=== PATIENT | female | born 1995 | race Caucasian/White ===

== ENCOUNTER 2025-02-06 15:19 | Emergency (ER) | payer BC, SELFPAY ==
[2025-02-06 15:19] VITALS: BMI 25.1
[2025-02-06 15:36] VITALS: BP 128/97
[2025-02-06 16:09] LABS: % Basophils 0.5 % (0-2); % Eosinophils 3.1 % (0-6); % Immature Granulocytes 0.2 % (0-0.5); % Lymphocytes 28.9 % (20.5-51.1); % Monocytes 7.5 % (1.7-9.3); % Neutrophils 59.8 % (42.2-75.2); Absolute Basophils 0.1 10^3/uL (0-0.2); Absolute Eosinophils 0.3 10^3/uL (0-0.7); Absolute Lymphocytes 2.9 10^3/uL (1.2-3.4); Absolute Monocytes 0.8 10^3/uL (0.1-0.6); Absolute Neutrophils 6.1 10^3/uL (1.4-6.5); Hematocrit 40.1 % (37.0-47.0); Mean Corp Hgb Conc. 34.9 g/dL (33.0-37.0); Mean Corpuscular Hgb 29.7 pg (27.0-31.0); Mean Platelet Volume 10.4 fL (7.4-10.4); Nucleated Red Blood Cells % 0 %; Platelet Count 301 10^3/uL (130-400); Red Blood Cell Count 4.72 10^6/uL (4.20-5.40); Red Cell Dist. Width 12.6 % (11.5-14.5); White Blood Cell Count 10.1 10^3/uL (4.8-10.8)
[2025-02-06 16:10] LABS: Urine Albumin Negative (Neg - Trace); Urine Bilirubin Negative (Negative); Urine Character Clear (Clear); Urine Color Yellow; Urine Glucose Negative (Negative); Urine Ketone 1+ (Negative); Urine Leukocyte 3+ (Negative); Urine Nitrite Negative (Negative); Urine Occult Blood Negative (Negative); Urine Urobilinogen Negative (Neg - 1+)
[2025-02-06 16:22] LABS: Urine Squamous Cell >30 /LPF (Few)
[2025-02-06 16:24] LABS: Urine Bacteria Moderate (Negative); Urine White Cell 16-20 /HPF (0-5)
[2025-02-06 16:43] LABS: ALT (SGPT) 14 U/L (0-35); AST (SGOT) 17 U/L (14-36); Albumin 5.1 g/dl (3.5-5.0); Alkaline Phosphatase 65 U/L (38-126); Blood Urea Nitrogen 10 mg/dl (7-17); Calcium 10.1 mg/dl (8.4-10.2); Carbon Dioxide 22 mmol/L (22-30); Chloride 109 mmol/L (98-107); Glucose 96 mg/dl (70-99); Potassium 3.7 mmol/L (3.5-5.1); Sodium 141 mmol/L (135-145); Total Bilirubin 0.7 mg/dl (0.2-1.3); Total Protein 7.9 g/dl (6.3-8.2); eGFR > 60.00
[2025-02-06 17:32] LABS: HCG, Serum Qualitative Screen Negative
--- NOTE | 2025-02-06 17:46 | ED.GENMED ---
History of Present Illness
General
Chief Complaint: Female Obgyn Hospitalist Physician/Gu symptoms
Source: patient
Exam Limitations: none
Time Seen by Provider: 02/06/25 17:12
History of Present Illness
History of Present Illness:
29yoF with no significant past medical history presenting with her mother for evaluation of pelvic pain. Symptoms began about 2.5 weeks ago while she was still on her menstrual period. She was experiencing cramping and states it felt like her
period never went away even though her bleeding stopped. She was seen at urgent care last week and was started on doxycycline because her cervix appeared abnormal. She took her last dose today. She started to have worsening pain in her left lower
pelvic region today which prompted her to come to the ED. She is urinating more frequently than normal but denies any dysuria. No vaginal discharge, odors, itching, fevers, vomiting. She has not been sexually active for about 3 years and denies
concerns for STDs.
Past History
Past History
ED Past Medical History: None
ED Past Surgical History: None
Social History
Tobacco: Non-smoker
Phy Exam
General Physical Exam
General Presentation: well appearing and no apparent distress
General Skin: warm and dry
General Habitus: normal
General Mental: alert
ENT Exam
ENT Exam: normocephalic
Pulmonary Exam
Pulmonary Exam: no respiratory distress
Gastrointestinal Exam
Gastrointestinal Exam: non tender, soft, non distended and no cva tenderness
Genitourinary Exam Female
Exam Female: other (Small amount of white discharge noted on speculum exam. Cervix otherwise appears normal. No cervical motion tenderness. )
Neurological Exam
Neurological Exam: alert
[place] Coma Scale
Eye Opening: Spontaneous
Verbal Response: Oriented
Motor Response: Obeys Commands
GCS Total Score: 15
Skin Exam
Skin Exam: normal color and warm/dry
Psychiatric Exam
Psychiatric Exam: normal mood/affect
Course
Orders/Labs/Results
Orders:
Orders
02/06/25 15:56
Comprehensive Metabolic Panel Urgent
HCG, Serum Qualitative Screen Urgent
Comment: ADD ON
02/06/25 15:57
Complete Blood Count/With Diff Urgent
Urinalysis Reflex To Culture Urgent
Date Specimen was Collected: 02/06/25
Time Specimen was Collected: 15:36
Urine Microscopic Reflex Cult Urgent
Urine Culture Urgent
[facility] Source: U
Specimen Description:
Date Specimen was Collected: 02/06/25
Time Specimen was Collected: 15:36
02/06/25 17:00
Add On- LAB Urgent
Tests Added?: serum hcg qualitative
02/06/25 17:41
Pelvis & Transvaginal US [US Pelvis W Transvag Combined] Urgent
Comment:
Reason For Exam: pelvic pain
02/06/25 17:50
Genital Culture Urgent
[facility] Source: Endo-Cervical
Specimen Description:
Date Specimen was Collected: 02/06/25
Time Specimen was Collected: 17:46
Trichomonas - Wet Prep Urgent
[facility] Source: Vagina
Specimen Description:
Date Specimen was Collected: 02/06/25
Time Specimen was Collected: 17:46
02/06/25 18:08
Chlamydia/GC by PCR Urgent
[facility] Source: Endo-Cervical
Specimen Description:
Source:: ENDOCERVICAL
Date Specimen was Collected: 02/06/25
Time Specimen was Collected: 18:16
02/06/25 19:07
Urinalysis Reflex To Culture Urgent
Date Specimen was Collected: 02/06/25
Time Specimen was Collected: 19:04
02/06/25 19:46
CT Abd/pelvis W Iv Cont Urgent
Comment:
Reason For Exam: LLQ pain
Ketorolac [Toradol] 15 mg IV NOW STA
Abnormal Lab Results
02/06/25 02/06/25 02/06/25
15:56 15:57 19:07
Absolute Monos (auto) 0.8 H 10^3/uL
(0.1-0.6)
Chloride 109 H mmol/L
(98-107)
Albumin 5.1 H g/dl
(3.5-5.0)
Urine Ketones 1+ A 2+ A
(Negative) (Negative)
Leukocyte Esterase Rfl 3+ A
(Negative)
Urine RBC 3-6 A /HPF
(0-2)
Urine WBC (Reflex) 16-20 A /HPF
(0-5)
Urine Bacteria (Reflex) Moderate A
(Negative)
02/06/25 15:57
02/06/25 15:56
Vital Signs
Initial and Last Documented VS:
Initial Vital Signs
Pulse Resp Pulse Ox
71 18 100
02/06/25 15:33 02/06/25 15:33 02/06/25 15:33
Last Documented Vital Signs
Temp Pulse Resp BP Pulse Ox
98.7 F 71 18 120/77 98
02/06/25 19:31 02/06/25 15:33 02/06/25 15:33 02/06/25 21:02 02/06/25 21:45
MDM/Problems Addressed
Differential Diagnosis Includes:
29yoF here with pelvic pain x 2.5 weeks. Finished a course of doxycycline that was prescribed by urgent care today. Now having worsening L pelvic pain. VSS. She is well appearing in no distress. Abdominal exam is benign. There is a small amount of
white vaginal discharge on exam. No cervical motion tenderness noted. Differential diagnosis includes but is not limited to: ovarian cyst, musculoskeletal, UTI, vaginitis, no clinical evidence of PID
Initial ED plan: Workup initiated in triage. Labs unremarkable including normal white count. UA with moderate bacteria although >30/LPF squamous epithelial cells present suggesting contaminated sample. Will check vaginal swabs, repeat UA, and check
pelvic ultrasound.
*Critical Care Note
Total Time (30-74mins, 75-104mins- exclusive of procedures): Not Applicable
Update Note
Update Note:
Ultrasound shows a 3.2 complex cyst in the left ovary for which repeat ultrasound is recommended in 8 to 12 weeks. Repeat UA negative for infection. On reassessment, patient is very concerned stating she has never had pain like this in the past
with her prior ovarian cysts. Pain is currently rated as a 5/10. Low clinical suspicion for torsion. She is worried that something more is going on. CT abdomen added which again shows a complex ovarian cyst. No other acute findings on CT.
Supportive care discussed including heat and NSAIDs. She has an appt with her astrobiologist in 6 days. ED return precautions reviewed. Patient discharged in stable condition.
ED Attending Note
-
Portions of this chart may have been created with voice recognition software.� Occasional wrong word or��sound alike� substitutions may have occurred due to the inherent limitations of voice recognition software.
Discharge Plan
Departure
Patient Disposition: Home (Routine Discharge)
Date of Disposition: 02/06/25
Time of Disposition: 21:43
Patient with high blood pressure during this ER visit?: No
Discharge Problem:
Cyst of left ovary
Instructions: Ovarian cyst - ED discharge instructions
Referrals:
Juice Mari MD [Family Provider, Family Practice]
Activity Restrictions/Additional Instructions:
Apply heat to affected area. Take Tylenol and ibuprofen as needed for pain.
Please follow-up with your astrobiologist next week as previously scheduled. Return to the ER with any worsening symptoms including severe pain.
Interventions
Interventions:
*Risk Screen - Suicide Last Done: 02/06/25 15:35
*General Assessment Last Done: 02/06/25 15:35
*Neglect/Abuse Screening Last Done: 02/06/25 15:35
*ED- Fall Risk Assessment Last Done: 02/06/25 21:58
*ED COVID-19 Vaccine History Last Done: 02/06/25 15:35
*Nursing Disposition Last Done: 02/06/25 21:58
ED-Female Genitourinary Assessment Last Done: 02/06/25 18:18
Discharge Date and Time
Discharge Date/Time: 02/06/25 21:59
Print Language: MALAY
--- NOTE | 2025-02-06 18:17 | EDRN ---
This RN spoke w. lab, as this RN sent 3 swabs to lab, and new orders have been placed since. Lab, [facility], states that this RN does not need to scan/send any additional labels, all specimens are received and hold labels are in place appropriately.
[2025-02-06 19:06] VITALS: BP 131/78
[2025-02-06 19:15] LABS: Urine Albumin Negative (Neg - Trace); Urine Bilirubin Negative (Negative); Urine Character Clear (Clear); Urine Color Yellow; Urine Glucose Negative (Negative); Urine Ketone 2+ (Negative); Urine Leukocyte Negative (Negative); Urine Nitrite Negative (Negative); Urine Occult Blood Negative (Negative); Urine Urobilinogen Negative (Neg - 1+); Urine pH 6.5 (5.0-9.0)
[2025-02-06] MEDS: TORADOL 15 MG IV (20:04)
[2025-02-06 21:02] VITALS: BP 120/77
== END 2025-02-06 21:59 | disposition home or self-care (01) ==
LOC: EMR 15:19
PROVIDERS: Physician Assistant; EMERGENCY PHYSICIAN Emergency Medicine; FAMILY PHYSICIAN Family Medicine
DX: N83.202 Unspecified ovarian cyst, left side (principal); Z90.721 Acquired absence of ovaries, unilateral
CPT/HCPCS: 99284; 96374; 74177; 76830; 76856; 80053; 81003; 81015; 84703; 85025; 87070; 87086; 87210; 87491; 87591; Q9967